=== PATIENT | female | born 1980 | race Two or more races ===

== ENCOUNTER 2019-08-16 05:47 | Day surgery (SDC) | payer OTHER ==
[2019-08-16] VITALS (10 sets, daily range): BP systolic 96–115; BP diastolic 56–72
[~2019-08-16] VITALS: Ht 157.5 cm; Wt 74.8 kg
[~2019-08-16 05:47] MED LIST: NKM; VITAMIN D1000 UNI1 ORAL; [UNRECOGNIZED DRUG - OTHER] PO
[2019-08-16] MEDS ORDERED: celeBREX 200mg Cap **SURGERY PATIENTS ONLY ORAL ONE (06:00)
[2019-08-16] MEDS ORDERED: oxyCONTIN 20mg tab ORAL ONE (06:00)
[2019-08-16] MEDS ORDERED: ceFAZolin 1gm IVPB IVPB ONE ×2 (06:00)
[2019-08-16] MEDS ORDERED: Bupivacaine 0.25% Inj 30ml INJ ONE (07:11)
[2019-08-16] MEDS ORDERED: Ketorolac 30mg Inj ONE (07:11)
[2019-08-16] MEDS ORDERED: Kenalog-40 1ml Vial ONE (07:11)
[2019-08-16] MEDS ORDERED: Duramorph PF 5mg/10ml amp ONE (07:11)
[2019-08-16] MEDS ORDERED: Bupivacaine 0.5% Inj 30 ml vial INJ ONE (07:12)
[2019-08-16] MEDS ORDERED: Lidocaine 1% 10mg/ml/Epi 0.005mg/ml 30ml vial INJ ONE (07:12)
[2019-08-16] MEDS ORDERED: Bupivacaine w/Epi 0.5% 30ml Vial INJ ONE (07:16)
[2019-08-16] MEDS ORDERED: fentaNYL 100 mcg/2 mL ONE (07:21)
[2019-08-16] MEDS ORDERED: Lidocaine 1% MPF 10mg/ml 5ml ONE (07:21)
[2019-08-16] MEDS ORDERED: Midazolam 2mg/2ml Inj ONE (07:21)
[2019-08-16] MEDS ORDERED: Propofol 200mg/20ml IV ONE (07:21)
[2019-08-16] MEDS ORDERED: Dexamethasone 4mg/ml vial ONE (07:24)
--- NOTE | 2019-08-16 07:25 | Anethesia Preoperative Eval ---
Anesthesia Pre-op PMH/ROS General Date of Evaluation: Aug 16, 2019 Anesthesiologist: Jonas ASA Score: ASA 1 Mallampati Score Class I : Soft palate, uvula, fauces, pillars visible Class II: Soft palate, uvula, fauces visible Class III: Soft palate, base of uvula visible Class IV: Only hard plate visible Mallampati Classification: Class II Surgeon: Geovanni Diagnosis: right knee pain Surgical Procedure: right knee arthroscopy Anesthesia History: none Family History: no anesthesia problems Allergies: Coded Allergies: No Known Allergies (Unverified , 08/16/19) Medications: see eMAR Patient NPO?: Yes NPO Date: Aug 15, 2019 NPO Time: 22:00 Past Medical History Cardiovascular: Denies: HTN, CAD, SD, valve dz, arrhythmia, other Pulmonary: Denies: asthma, COPD, ABHISHEK, other Gastrointestinal/Genitourinary: Denies: GERD, CRI, ESRD, other Neurologic/Psychiatric: Denies: dementia, CVA, depression/anxiety, TIA, other Endocrine: Denies: DM, hypothyroidism, steroids, other HEENT: Denies: cataract (L), cataract (R), glaucoma, [place] (L), [place] (R), other Hematology/Immune: Denies: anemia, DVT, bleeding disorder, other Musculoskeletal/Integumentary: Denies: OA, RA, DJD, DDD, edema, other PSxH Narrative: bilateral lasik Anesthesia Pre-op Phys. Exam Physician Exam Last Vital Signs Date Time Temp Pulse Resp B/P (MAP) Pulse Ox O2 Delivery O2 Flow Rate FiO2 08/16/19 06:22 Room Air 08/16/19 06:21 98.0 81 18 115/72 100 Constitutional: NAD Cardiovascular: RRR Respiratory: CTA Airway Exam Mallampati Score: Class II MO: full ROM: full Teeth: intact Anesthesia Pre-op A/P Labs see chart Urine Test Test 08/16/19 06:00 Urine HCG, Qualitative Negative (NEGATIVE) Studies Pre-op Studies: EKG - sr Risk Assessment & Plan Assessment: ASA I Plan: GA Status Change Before Surgery: No Pre-Antibiotics Drug: Ancef 1g Given Within 1 Hr of Incision: Yes Rona Rojas MD Aug 16, 2019 07:25
--- NOTE | 2019-08-16 07:26 | Pre-Procedure Note/Attestation ---
Pre-Procedure Note/Attestation Complete Prior to Procedure Planned Procedure: right Procedure Narrative: knee diagnostic arthroscopy, possible menisectomy, possible synovectomy Indications for Procedure Pre-Operative Diagnosis: right knee internal derangment Attestation I attest that I discussed the nature of the procedure; its benefits; risks and complications; and alternatives (and the risks and benefits of such alternatives ), prior to the procedure, with the patient (or the patient's legal food service sales representatives). I attest that, if there was a reasonable possibility of needing a blood transfusion, the patient (or the patient's legal food service sales representatives) was given the [facility] standardized written summary, pursuant to the [place] Blood Safety Act ([place] Health and Safety Code # 1645, as amended). I attest that I re-evaluated the patient just prior to the surgery and that there has been no change in the patient's H&P, except as documented below: Demarcus Galarza MD Aug 16, 2019 07:26
--- NOTE | 2019-08-16 07:26 | Operative Note - PDOC ---
Operative Note Operative Note Pre-op Diagnosis: right knee internal derangment Procedure: see op report Post-op Diagnosis: same as pre-op plus Operative Findings: consistent w/pre-op dx studies Anesthesia: MAC Specimen: none Complications: none Condition: stable Estimated Blood Loss: none Implant(s) used?: No Demarcus Galarza MD Aug 16, 2019 07:26
[2019-08-16] MEDS ORDERED: HYDROcodone/Acetamin 5/325 tab ORAL PRN (07:30)
[2019-08-16] MEDS ORDERED: D5 1/2NS 1,000 ML IV SCH (07:30)
[2019-08-16] MEDS ORDERED: LR 1000ml ONE (07:30)
[2019-08-16] MEDS ORDERED: HYDROmorphone 1mg/ml Carpuject SUBQ PRN (07:30)
[2019-08-16] MEDS ORDERED: NS Irrig 1000ml ONE (07:30)
[2019-08-16] MEDS ORDERED: Tylenol #3 tab (300mg/30mg) ORAL PRN (07:30)
[2019-08-16] MEDS ORDERED: LR 1000ml 1,000 ML IVLG SCH (07:38)
[2019-08-16] MEDS ORDERED: LORazepam Inj 2mg/ml 1ml IV PRN (07:45)
[2019-08-16] MEDS ORDERED: Metoclopramide 10mg/2ml Inj IVP PRN (07:45)
[2019-08-16] MEDS ORDERED: Ketorolac 30mg Inj IV PRN (07:45)
[2019-08-16] MEDS ORDERED: Hydromorphone 0.5mg/0.5ml inj IVP PRN (07:45)
[2019-08-16] MEDS ORDERED: DiphenhydrAMINE 50mg/ml Inj IVP PRN (07:45)
[2019-08-16] MEDS ORDERED: fentaNYL 100 mcg/2 mL IV PRN (07:45)
--- NOTE | 2019-08-16 08:23 | 48 Hour Post Anesthesia Eval ---
Post Anesthesia Evaluation Procedure: right knee arthroscopy Date of Evaluation: Aug 16, 2019 Airway: patent Nausea: No Vomiting: No Pain Intensity: 0 Hydration Status: adequate Cardiopulmonary Status: at baseline Mental Status/LOC: patient returned to baseline Post-Anesthesia Complications: 0 Follow-up care needed: ready to discharge Rona Rojas MD Aug 16, 2019 08:23
--- NOTE | 2019-08-16 08:23 | Immediate Post-Op Evaluation ---
Immediate Post-Op Evalulation Immediate Post-Op Evalulation Procedure: right knee arthroscopy Date of Evaluation: Aug 16, 2019 Time of Evaluation: 08:25 IV Fluids: 500 Blood Products: 0 Estimated Blood Loss: min Urinary Output: 0 Blood Pressure Systolic: 106 Blood Pressure Diastolic: 63 Pulse Rate: 87 Respiratory Rate: 16 O2 Sat by Pulse Oximetry: 100 Temperature (Fahrenheit): 97.4 Pain Score (1-10): 0 Nausea: No Vomiting: No Complications 0 Patient Status: awake, reacts, patent, none Hydration Status: adequate Drug: Ancef 1g Given Within 1 Hr of Incision: Yes Rona Rojas MD Aug 16, 2019 08:23
--- NOTE | 2019-08-16 15:45 | Operative Note - Dictated ---
DATE OF OPERATION: 08/16/2019 PREOPERATIVE DIAGNOSIS: Right knee internal derangement meniscal tear versus chondral damage. POSTOPERATIVE DIAGNOSES: 1. Right knee intrameniscal degeneration posterior horn medial meniscus. 2. Grade 3 chondral damage, medial femoral condyle. 3. Grade 3 chondral damage trochlear groove. 4. Hypertrophic synovial tissue medial, lateral, patellofemoral compartment. 5. Grade 3 chondral damage, medial patellar facet. PROCEDURES: 1. Right knee diagnostic arthroscopy, chondroplasty medial and patellofemoral compartment. 2. Complete synovectomy medial, lateral, and patellofemoral compartment. SURGEON: Demarcus Galarza M.D. ANESTHESIA: MAC. INDICATION FOR PROCEDURE: The patient is a pleasant female, who had a significant injury to the right knee. Failed conservative treatment, elected to undergo right knee diagnostic arthroscopy with possible meniscectomy, synovectomy, chondroplasty. Risks, limitations, expectations, and complications of procedure were discussed in detail. All questions were addressed. DESCRIPTION OF PROCEDURE: After informed consent obtained, the patient was brought to the operating room. The patient was placed under general anesthesia. Left leg was prepped and draped in a sterile manner. Time-out was performed. Inferolateral stab incision was then made. Trocar introduced into the knee joint. There was hypertrophic synovial tissue in the patellofemoral compartment. Of note, there was grade 3 chondral damage in the patellofemoral and along the medial facet. There was hypertrophic fat pad in the synovial tissue in the patellofemoral compartment and medial gutter. Medial compartment was entered. There was grade 2 to grade 3 chondral damage in the femoral condyle. Medial working portal was established. Synovectomy of the medial compartment, intercondylar notch, lateral compartment was performed to better visualize the contents of the knee. The meniscus was probed, noted to be intact. There were some chondral flaps in the area of chondral damage. The area of chondral damage measured approximately 8 mm x 5 mm. Gentle chondroplasty of this area was performed down to stable cartilage. Once that was completed, the ACL was probed, noted to be intact. Lateral compartment was entered free from the meniscal chondral damage. Camera was then repositioned in the patellofemoral compartment. Once the fat pad and synovial tissue was excised, we found another area of chondral damage and measured 5 mm x 5 mm in the trochlear groove along the medial femoral condyle. Gentle chondroplasty of this area was performed. Once that was done, the instruments were removed. Portal sites were closed with 3-0 Monocryl sutures. IMPLANTS: None. COMPLICATIONS: None. SPECIMENS: None. Demarcus Galarza M.D. DR: GARETT JOB#: [id number] CC: [email or web address]
== END 2019-08-16 10:00 | disposition home or self-care (01) ==
LOC: SUR 05:47
DX: M23.91 Unspecified internal derangement of right knee (principal); M67.261 Synovial hypertrophy, not elsewhere classified, right lower leg
CPT/HCPCS: 29876; 81025; J0690; J1100; J1885; J2250; J2405; J2704; J3010; J3301; J3490; 94003; 94150